=== PATIENT | male | born 1970 | race African-American/Black ===

== ENCOUNTER 2016-09-05 03:37 | Emergency (ER) | payer SELFPAY ==
[~2016-09-05] VITALS: Ht 180.3 cm; Wt 77.1 kg
[2016-09-05 03:40] VITALS: BP 125/80
--- NOTE | 2016-09-05 03:53 | NUR ---
PT PRESENTED TO THE ER WITH A C/O WANTING DETOX. PT WAS TRIAGED AND TAKEN TO ROOM #3. URINE SAMPLE WAS OBTAINED. PT AMBULATED WITH A STEADY GAIT.
--- NOTE | 2016-09-05 03:54 | NUR ---
PT'S FRIEND ARRIVED AND PT DECIDED TO LEAVE WITHOUT BEING SEEN. PT STATED: "I DON'T WANT TO BE HERE"
== END 2016-09-05 03:58 | disposition left against medical advice (07) ==
LOC: ER 03:40
DX: F15.10 Other stimulant abuse, uncomplicated (principal); F10.20 Alcohol dependence, uncomplicated
CPT/HCPCS: A4606; Z7610